=== PATIENT | female | born 1965 | race Caucasian/White ===

== ENCOUNTER 2018-05-07 21:32 | Emergency (ER) | payer BC ==
--- NOTE | 2018-05-07 23:38 | ER Document Report ---
HPI - HPI Pain Level: 4 Notes: Patient is a 53-year-old female who presents with chief complaint of left foot pain. Patient reports she was walking up steps when she stepped wrong, twisted and heard a pop near the fifth digit. Patient reports this happened approximately noon today, patient reports she tried icing and elevating the extremity however she reports that the pain is still present bruising has gotten worse. - MUSCULOSKELETAL Musculoskeletal: REPORTS: Extremity pain - left ankle Past Medical History - General Information source: Patient - Social History Smoking Status: Never Smoker Frequency of alcohol use: None Drug Abuse: None Family History: Reviewed & Not Pertinent Patient has suicidal ideation: No Patient has homicidal ideation: No - Medical History Medical History: Negative Renal/ Medical History: Denies: Hx Peritoneal Dialysis Past Surgical History: Reports: Hx Orthopedic Surgery, Hx Tubal Ligation - Immunizations Immunizations up to date: Yes Hx Diphtheria, Pertussis, Tetanus Vaccination: Yes Vertical Provider Document - CONSTITUTIONAL Notes: PHYSICAL EXAMINATION: GENERAL: Well-appearing, well-nourished and in no acute distress. HEAD: Atraumatic, normocephalic. EYES: Pupils equal round extraocular movements intact, conjunctiva are normal. ENT: Nares patent NECK: Normal range of motion LUNGS: No respiratory distress Musculoskeletal: Normal range of motion, capillary refill less than 3 seconds, ecchymosis noted to dorsal surface of left foot near the fourth and fifth metatarsals. Normal motor and sensation distal to injury. NEUROLOGICAL: Normal speech, normal gait. PSYCH: Normal mood, normal affect. SKIN: Warm, Dry, normal turgor, no rashes or lesions noted. - INFECTION CONTROL TRAVEL OUTSIDE OF THE [place] IN LAST 30 DAYS: No Course - Re-evaluation Re-evalutation: X-ray of the left foot reveals a mildly displaced fracture to the fifth metatarsal. Patient will be placed in a short posterior leg splint. Patient was offered pain medications which she declined. Patient reports she will take ibuprofen [id number] as that is her preferred choice of analgesic. Patient will be given instructions on ice, elevation and follow-up with Orthopedics. Patient verbalizes understanding of same. - Vital Signs Vital signs: Temp Pulse Resp BP Pulse Ox 98.6 F 74 18 126/83 H 98 05/07/18 22:16 05/07/18 22:16 05/07/18 22:16 05/07/18 22:16 05/07/18 22:16 Procedures - Immobilization left foot Pre-Proc Neuro Vasc Exam: Normal Immobilizer type: Short Leg Posterior Performed by: PCT Post-Proc Neuro Vasc Exam: Normal Alignment checked and good: Yes Discharge - Discharge Clinical Impression: Fracture of 5th metatarsal Qualifiers: Encounter type: initial encounter Fracture type: closed Fracture alignment: displaced Laterality: left Qualified Code(s): S92.352A - Displaced fracture of fifth metatarsal bone, left foot, initial encounter for closed fracture Condition: Stable Disposition: HOME, SELF-CARE Additional Instructions: Foot Fracture You have a fracture in one of the small bones of the foot. Some foot fractures are very serious, while others are no more serious than a sprain. This fracture should heal well, but requires protection for proper healing. Initially, you should elevate and ice pack the foot, and bear no weight on it. Usually, a cast or a walking boot will be required. Some milder foot fractures can be managed with temporary rest, then a firm shoe. Your physician has determined the seriousness of your foot fracture and has outlined the treatment plan for you. You should follow up as instructed to insure that the fracture heals without complications. Call the doctor or return at once if pain or swelling becomes severe, if a re-injury occurs, or if any part of the foot becomes numb. Ice & Elevation Apply ice packs frequently against the painful area. Many different schedules are recommended, such as "20 minutes on, 20 minutes off" or "one hour ice, two hours rest." If you need to work, you may need to go longer between ice treatments. You should plan to have the area ice packed AT LEAST one- fourth of the time. The ice should be applied over the wrap, tape, or splint, or over a layer of cloth -- not directly against the skin. Some ice bags have a built-in cloth and can be put directly on the skin. Your injured part should be elevated as much as possible over the next 48 hours. Try to keep the injury above the level of the heart. Avoid use of the injured area. Elevation and rest will decrease the swelling. Please take ibuprofen 600 mg every 6 hours for pain. You have declined any stronger pain medication. Please follow-up with orthopedics, call them tomorrow to get an appointment. Absolutely no weightbearing until cleared by orthopedics. Referrals: ANGELA ASHBY MD [ACTIVE STAFF] - Follow up as needed
--- NOTE | 2018-05-07 23:48 | RADIOLOGY REPORT (SQ) ---
EXAM DESCRIPTION: XR FOOT 3 OR MORE VIEWS COMPLETED DATE/TME: 05/07/2018 00:00 CLINICAL HISTORY: 53 years, Female, Twisted foot/missed step painful COMPARISON: None. NUMBER OF VIEWS: Three TECHNIQUE: AP, oblique and lateral views of the left foot LIMITATIONS: None. FINDINGS: Minimally displaced oblique fracture along the mid-distal diaphysis of the fifth metatarsal. Fifth metatarsophalangeal joint is preserved. No additional fracture. No ankle joint effusion. Calcaneus bone is within normal limits. IMPRESSION: Acute fifth metatarsal fracture as above. 2010 [employer]- All Rights Reserved
[2018-05-08 00:47] VITALS: BP 122/80
== END 2018-05-08 00:46 | disposition home or self-care (01) ==
LOC: ER 21:32
DX: S92.352A Displaced fracture of fifth metatarsal bone, left foot, initial encounter for closed fracture (principal); X50.0XXA Overexertion from strenuous movement or load, initial encounter
CPT/HCPCS: 99283